=== PATIENT | female | born 1985 | race Two or more races ===

== ENCOUNTER 2019-04-10 16:07 | Emergency (ER) | payer SELFPAY ==
[~2019-04-10] VITALS: Ht 162.6 cm; Wt 77.1 kg
[2019-04-10] MEDS ORDERED: LIDOCAINE 1% HCL (LOCAL ANESTH.) INJ 20ML MDV IJ ONE (18:15)
[2019-04-10] MEDS ORDERED: BACITRACIN TOP OINT 1 UD PKG TOP ONE (18:15)
[2019-04-10 18:54] VITALS: BP 128/57
== END 2019-04-10 18:59 | disposition home or self-care (01) ==
LOC: ER 16:13
DX: S01.21XA Laceration without foreign body of nose, initial encounter (principal); M79.89 Other specified soft tissue disorders; Y08.89XA Assault by other specified means, initial encounter; Y93.89 Activity, other specified; Y99.8 Other external cause status; Y92.89 Other specified places as the place of occurrence of the external cause
CPT/HCPCS: 12011; 70486; 99284; J2001